=== PATIENT | female | born 1955 | race Caucasian/White ===

== ENCOUNTER → 2016-06-18 | Outpatient (CLI) | payer OTHER ==
--- NOTE | 2016-06-18 12:06 | MA ---
Diagnostic Digital Mammogram With iCAD Analysis Clinical Indications: The patient has a clinical history of right breast cancer treated with lumpecto my and radiation. Technique: Standard cephalocaudal projections were obtained. Digital breast tomosynthesis was perform ed in the MLO projection with reconstruction at 1.0-mm slice thickness and composite MLO views recons tructed. This examination was processed by the iCAD computer-aided detection system. Comparison: June 2015 and June 2014. Breast density: Type B; Scattered fibroglandular densities. Findings: CAD was reviewed. Asymmetry at the lumpectomy site in the upper right breast is stable. No masses, suspicious calcifications or secondary signs of malignancy are seen. There has been no signif icant change in the appearance of either breast. Impression: Benign post lumpectomy mammography. BI-RADS 2. Recommendation: Routine mammographic screening in one year as long as physical examination is negativ e. A verbal report was given to the patient. [facility] will send a result letter to the patient. Negative mammography should not preclude additional workup of a clinically suspicious finding. The patient's information is entered into a reminder system with a target due date for her next mammo gram.
== END ==
LOC: FIMAGING 11:11
PROVIDERS: ATTEND Internal Medicine
DX: Z08 Encounter for follow-up examination after completed treatment for malignant neoplasm (principal); Z85.3 Personal history of malignant neoplasm of breast

== ENCOUNTER → 2017-07-01 | Outpatient (CLI) | payer OTHER | LOC: FIMAGING 10:32 | PROVIDERS: ATTEND Internal Medicine | DX: Z12.31 Encounter for screening mammogram for malignant neoplasm of breast (principal); Z85.3 Personal history of malignant neoplasm of breast ==

== ENCOUNTER → 2017-07-10 | Outpatient (CLI) | payer OTHER | LOC: FIMAGING 11:40 | PROVIDERS: ATTEND Internal Medicine | DX: R92.0 Mammographic microcalcification found on diagnostic imaging of breast (principal); Z85.3 Personal history of malignant neoplasm of breast ==

== ENCOUNTER → 2018-01-27 | Outpatient (CLI) | payer OTHER | LOC: FIMAGING 10:07 | PROVIDERS: ATTEND Internal Medicine | DX: R92.0 Mammographic microcalcification found on diagnostic imaging of breast (principal) ==

== ENCOUNTER → 2018-07-15 | Outpatient (CLI) | payer OTHER | LOC: FIMAGING 14:24 | PROVIDERS: ATTEND Internal Medicine | DX: Z12.31 Encounter for screening mammogram for malignant neoplasm of breast (principal); Z85.3 Personal history of malignant neoplasm of breast ==